=== PATIENT | male | born 1985 | race African-American/Black ===

== ENCOUNTER 2017-03-01 06:27 | Emergency (ER) | payer SELFPAY ==
[~2017-03-01] VITALS: Ht 180.3 cm; Wt 94.3 kg
[~2017-03-01 06:27] MED LIST: NKHM
[2017-03-01] MEDS ORDERED: CLINDAMYCIN HC300 MG PO (06:46)
[2017-03-01] MEDS ORDERED: Motrin,Rufen800 MG PO (06:46)
[2017-03-01] MEDS ORDERED: NORCO 5-325 TA1 EACH PO (06:46)
[2017-03-01] MEDS ORDERED: ZESTRIL5 MG PO (06:48)
== END 2017-03-01 06:57 | disposition home or self-care (01) ==
LOC: ED 06:27
DX: K04.01 Reversible pulpitis (principal); K02.9 Dental caries, unspecified

== ENCOUNTER 2017-09-12 18:53 | Emergency (ER) | payer SELFPAY ==
[~2017-09-12] VITALS: Ht 177.8 cm; Wt 81.6 kg
[~2017-09-12 18:53] MED LIST changes: +CLINDAMYCIN HC300 MG PO; +Motrin,Rufen800 MG PO; +NORCO 5-325 TA1 EACH PO; +ZESTRIL5 MG PO
[2017-09-12 21:23] LABS: BILIRUBIN NEGATIVE (NEGATIVE); BLOOD 2+ (NEGATIVE); CLARITY SL CLOUDY (CLEAR); COLOR YELLOW (YELLOW); GLUCOSE NEGATIVE (NEGATIVE); KETONE 1+ (NEGATIVE); LEUKO ESTERASE 1+ (NEGATIVE); NITRITE NEGATIVE (NEGATIVE); UROBILINOGEN 0.2 E.U./dl (0.2-1.0)
[2017-09-12 21:34] LABS: BACTERIA 2+; RBC 16-20 rbc/hpf (0-2); WBC 41-50 wbc/hpf (0-5)
[2017-09-12] MEDS ORDERED: SEPTDS PO (21:41)
[2017-09-12] MEDS ORDERED: NAPROSYN500 MG PO (21:41)
== END 2017-09-12 23:17 | disposition home or self-care (01) ==
LOC: ED 18:53
PROVIDERS: Nurse Practitioner Family
DX: N39.0 Urinary tract infection, site not specified (principal)

== ENCOUNTER → 2021-06-08 | Outpatient (CLI) | payer OTHER ==
[~2021-06-08] MED LIST changes: +NAPROSYN500 MG PO; +SEPTDS PO
== END | disposition home or self-care (01) ==
LOC: COVID19 15:55
PROVIDERS: ATTEND Internal Medicine
DX: Z11.52 Encounter for screening for COVID-19 (principal)

== ENCOUNTER 2022-01-07 09:29 | Emergency (ER) | payer SELFPAY ==
[~2022-01-07] VITALS: Wt 104.3 kg
[2022-01-07 10:15] LABS: BASO # 0.1 10*3/uL (0.0-0.1); BASO % 0.5 % (0.0-1.0); EOS # 0.2 10*3/uL (0.0-0.4); EOS % 2.3 % (1.0-4.0); HEMATOCRIT 48.3 % (42.0-52.0); LYMPH # 2.3 10*3/uL (1.3-4.4); LYMPH % 21.5 % (27.0-41.0); MEAN CORPUSCULAR HGB 30.4 pg (27.0-31.0); MEAN CORPUSCULAR HGB CONC 34.2 g/dl (33.0-37.0); MEAN PLATELET VOLUME 10.7 fl (9.6-12.3); MONO # 0.9 10*3/uL (0.1-1.0); MONO % 8.6 % (3.0-9.0); NEUT % 66.9 % (47.0-73.0); PLATELET COUNT AUTOMATED 320 10*3/uL (130-400); RED BLOOD COUNT 5.43 10*6/uL (4.50-5.90); RED CELL DISTRI WIDTH 13.8 % (0-14.5); WHITE BLOOD COUNT 10.5 10*3/uL (4.8-10.8)
[2022-01-07 10:35] LABS: ALKALINE PHOSPHATASE 112 U/L (45-117); BUN 11 mg/dl (7-24); CHLORIDE 108 mmol/L (98-107); CREATININE 1.02 mg/dL (0.70-1.30); POTASSIUM 4.2 mmol/L (3.5-5.1); SGOT/AST 26 IU/L (3-35); SGPT/ALT 34 U/L (12-78); SODIUM 137 mmol/L (136-145); TOTAL PROTEIN 8.6 gm/dL (6.4-8.2)
[2022-01-07 10:37] LABS: LIPASE 1821 U/L (73-393)
[2022-01-07] MEDS ORDERED: ZOFRAN4 MG PO ×2 (11:09)
== END 2022-01-07 11:47 | disposition home or self-care (01) ==
LOC: ED 09:29
PROVIDERS: Family Medicine
DX: K85.90 Acute pancreatitis without necrosis or infection, unspecified (principal)

== ENCOUNTER 2022-01-12 10:07 | Emergency (ER) | payer SELFPAY ==
[~2022-01-12 10:07] MED LIST changes: +ZOFRAN4 MG PO
[2022-01-12] MEDS ORDERED: CLINDAMYCIN HC300 MG PO (10:15)
== END 2022-01-12 10:37 | disposition home or self-care (01) ==
LOC: ED 10:07
DX: K02.9 Dental caries, unspecified (principal)